=== PATIENT | male | born 1980 | race Native Hawaiian/Other Pacific Islander ===

== ENCOUNTER 2017-11-01 15:13 | Outpatient (CLI) | payer BC | END 2017-11-01 21:27 | disposition home or self-care (01) | LOC: LABW 15:13 | DX: K52.89 Other specified noninfective gastroenteritis and colitis (principal); R19.4 Change in bowel habit; Z01.818 Encounter for other preprocedural examination | CPT/HCPCS: 82705; 83631; 87205; 87324; 87328; 87329; 87449 ==

== ENCOUNTER 2020-12-20 15:33 | Outpatient (CLI) | payer OTHER ==
[2020-12-20 16:04] LABS: PLATELET COUNT 216 K/uL (142-355)
== END 2020-12-20 23:00 | disposition home or self-care (01) ==
LOC: LABW 15:33
PROVIDERS: ATTEND Internal Medicine
DX: E11.9 Type 2 diabetes mellitus without complications (principal)
CPT/HCPCS: 36415; 80053; 80061; 81000; 82043; 82570; 83036; 84439; 84443; 85027